=== PATIENT | male | born 1955 | race Two or more races ===

== ENCOUNTER 2020-10-19 12:51 | Emergency (ER) | payer OTHER ==
[~2020-10-19] VITALS: Ht 182.9 cm; Wt 93.9 kg
[2020-10-19] MEDS ORDERED: ZYRTEC10 M3 PO (13:03)
[2020-10-19] MEDS ORDERED: PERCOCET 10-321 EACH PO (13:05)
[2020-10-19] MEDS ORDERED: RELAFEN DS1000 MG PO (13:06)
== END 2020-10-19 14:13 | disposition home or self-care (01) ==
LOC: ER 12:51
DX: M25.461 Effusion, right knee (principal); M96.89 Other intraoperative and postprocedural complications and disorders of the musculoskeletal system; Y83.8 Other surgical procedures as the cause of abnormal reaction of the patient, or of later complication, without mention of misadventure at the time of the procedure

== ENCOUNTER 2020-10-22 11:42 | Inpatient (IN) | payer OTHER ==
[~2020-10-22] VITALS: Ht 160 cm; Wt 68.9 kg
[~2020-10-22 11:42] MED LIST: PERCOCET 10-321 EACH PO; RELAFEN DS1000 MG PO; ZYRTEC10 M3 PO
--- NOTE | 2020-10-22 12:45 | NUR ---
SE RECIBE MASCULINO DE 65 ANOS ALERTA Y ORIENTADO POR TITO DIMESNIONES CON UN BUEN PATRON RESPIRATORIO. SE ORIENTA A PTE Y FAMILIAR SOBRE PROCEDIMIENTOS, MEDICAMENTOS E INSTRUCCIONES A SEGUIR, ELLOS REFIEREN ENTENDER. SE EXTRAE MUESTRAS DE ADALBERTO, SE CANALIZA Y SE ADMINISTRA MEDICAMENTOS MELANIE ORDEN MEDICA. ARAE DE CANALIZACION EN MANO LT CON ANGIO #18, MELANIE ORDEN MEDICA, UTILIZANDO MEDIDAS ASEPTICAS. AREA PERMANECE PATENTE, NINA DE EDMA Y ERITEMA CON IV FLUIDS DE .9NSS @ 150ML/HR. SE ROMEO PTE EN CAMA BAJA, BARANDAS ELEVADAS, FRENOS AJUSTADOS Y TIMBRE ACCESIBLE.
[2020-10-28] MEDS ORDERED: ULTRACET PO ×2 (08:16→08:21)
[2020-10-28] MEDS ORDERED: INTESTINEX680 M1 PO (08:21)
[2020-10-28] MEDS ORDERED: CLEOCIN HCL300 MG PO (08:21)
== END 2020-10-28 16:40 | DRG 487 ==
LOC: ER 11:42 → SURH 15:33
PROVIDERS: Orthopaedic Surgery; ADMIT Internal Medicine; ATTEND Internal Medicine
PROC: 0SBC4ZZ Excision of Right Knee Joint, Percutaneous Endoscopic Approach (ICD-10-PCS; principal; 2020-10-23 09:15)
DX: M00.061 Staphylococcal arthritis, right knee (principal); B95.7 Other staphylococcus as the cause of diseases classified elsewhere; Z20.828 Contact with and (suspected) exposure to other viral communicable diseases; M65.861 Other synovitis and tenosynovitis, right lower leg; M23.251 Derangement of posterior horn of lateral meniscus due to old tear or injury, right knee